=== PATIENT | male | born 1975 | race Asian ===

== ENCOUNTER 2017-02-28 13:25 | Emergency (ER) | payer SELFPAY ==
[~2017-02-28] VITALS: Ht 162.6 cm; Wt 51.3 kg
--- NOTE | 2017-02-28 13:25 | NUR ---
C/O LEFT SIDED CHEST PAIN NON RADIATING STARTED AROUND 11AM. NAD NOTED. PT AAO X4, AMB WITH STEADY GAIT. RR EVEN AND UNLABORED. PENDING MD BENSON. EKG AT BEDSIDE.
[2017-02-28] MEDS ORDERED: KETOROLAC TROMETHAMINE INJ 30 MG/ML VIAL ONE (13:57)
[2017-02-28] MEDS ORDERED: KETOROLAC TROMETHAMINE INJ 30 MG/ML VIAL IV ONE (14:00)
[2017-02-28 14:01] LABS: BASOPHILS % (AUTO) 0.4 % (0.0-2.0); EOSINOPHILS % (AUTO) 0.5 % (0.0-6.0); HEMATOCRIT 46 % (39-51); LYMPHOCYTES % (AUTO) 19.7 % (20.0-44.0); MEAN CORPUSCULAR HEMOGLOBIN 32 PG (26.0-33.0); MEAN CORPUSCULAR HGB CONC 35 g/dl (31.0-36.0); MEAN CORPUSCULAR VOLUME 92 fL (80-96); MONOCYTES # (AUTO) 0.3 /CMM (0.1-1.30); MONOCYTES % (AUTO) 5.9 % (2.0-12.0); NEUTROPHILS # (AUTO) 3.7 /CMM (1.8-8.9); NEUTROPHILS % (AUTO) 73.5 % (43.0-81.0); PLATELET COUNT (AUTO) 195 /CMM (150-450); RDW COEFFICIENT OF VARIATION 12.7 (11.5-15.0); RED BLOOD CELL COUNT(AUTO) 5.04 MIL/uL (4.5-6.0); WHITE BLOOD COUNT (AUTO) 5.1 K/uL (4.3-11.0)
[2017-02-28 14:12] LABS: CALCIUM, SERUM 9.2 mg/dL (8.5-10.1); CARBON DIOXIDE 30 mmol/L (21-32); CHLORIDE 103 mmol/L (98-107); GLUCOSE 129 mg/dL (74-106); POTASSIUM 3.8 mmol/L (3.5-5.1); SODIUM SERUM 138 mmol/L (136-145); UREA NITROGEN, BLOOD 12 mg/dL (7-18)
[2017-02-28 14:21] LABS: TROPONIN I < 0.017 ng/mL (0.00-0.056)
[2017-02-28 14:22] LABS: INR 1.02 (0.87-1.13); PROTHROMBIN TIME 10.9 SECS (9.5-12.7)
--- NOTE | 2017-02-28 14:30 | NUR ---
IV removed. Catheter intact and site benign. Pressure and 4x4 applied to site. No bleeding noted.
[2017-02-28 14:51] VITALS: BP 107/78
--- NOTE | 2017-02-28 14:52 | NUR ---
Patient discharged to home in stable condition. Written and verbal after care instructions given. Patient verbalizes understanding of instruction.
== END 2017-02-28 14:46 | disposition home or self-care (01) ==
LOC: ER 13:31
DX: M94.0 Chondrocostal junction syndrome [Tietze] (principal); E78.00 Pure hypercholesterolemia, unspecified; K58.9 Irritable bowel syndrome, unspecified; Z88.1 Allergy status to other antibiotic agents
CPT/HCPCS: 36415; 71010; 80048; 84484; 85025; 85730; 93005; 96374; 99285; A4606; J1885 ×2; Z7610